=== PATIENT | male | born 1950 | race Caucasian/White ===

== ENCOUNTER 2016-07-01 13:15 | Inpatient (IN) | payer BC, OTHER ==
[~2016-07-01] VITALS: Ht 167.6 cm; Wt 96.6 kg
[2016-07-01] MEDS ORDERED: NAPR500T3 PO (14:54)
[2016-07-01 15:00] VITALS: BP 171/93
[2016-07-01] MEDS ORDERED: BISACODYL 10 MG SUPP.RECT. PR PRN (15:15)
[2016-07-01] MEDS ORDERED: ZOLPIDEM 5 MG TABLET. PO PRN (15:15)
[2016-07-01] MEDS ORDERED: MAGNESIUM HYDROXIDE 2,400 MG/30 ML ORAL.SUSP. PO PRN (15:15)
[2016-07-01] MEDS ORDERED: OXYCODONE IR 5 MG TABLET. PO PRN (15:15)
[2016-07-01] MEDS ORDERED: CALCIUM CARBONATE 500 MG TAB.CHEW PO PRN (15:15)
[2016-07-01] MEDS ORDERED: MORPHINE SULFATE 2 MG/ML DISP.SYRIN. IV PRN (15:15)
[2016-07-01] MEDS ORDERED: KETOROLAC 15 MG/ML VIAL. IV PRN (15:15)
[2016-07-01] MEDS ORDERED: MAG HYDROX/ALUMINUM HYD/SIMETH 30 ML ORAL.SUSP PO PRN (15:15)
[2016-07-01] MEDS ORDERED: ACETAMINOPHEN 325 MG TABLET. PO PRN (15:15)
[2016-07-01] MEDS ORDERED: PROCHLORPERAZINE 10 MG/2 ML VIAL. IV PRN (15:15)
[2016-07-01] MEDS ORDERED: ONDANSETRON PF 4 MG/2 ML VIAL. IV PRN (15:15)
[2016-07-01] MEDS ORDERED: PROCHLORPERAZINE 25 MG SUPP.RECT. PR PRN (15:15)
[2016-07-01] MEDS ORDERED: IBUPROFEN 400 MG TABLET. PO PRN (15:15)
[2016-07-01] MEDS ORDERED: CHLORDIAZEPOXIDE HCL 25 MG PO PRN (16:30)
--- NOTE | 2016-07-01 16:33 | PDOC1 ---
History and Physical Date of Admission Date of Admission DATE: 07/01/16 TIME: 16:26 Identification/Chief Complaint Chief Complaint transferred from [facility] for [facility] Problems: Source Source: Chart review, Patient History of Present Illness History of Present Illness Very pleasant 65 y.o male, premature CAD runs in family,heavy etoh consumption but non smoker, was admitted at [facility] last fri for CP, 7., no identifiable precipitating or alleviating factors. EKg ok, but trops trending up peaking at 3. Hence transferred here to get [facility] - Dr. Jeronimo aware, VS ok, only takes naproxen at home for OA, Chart from [facility] reviewed LIpids taken at [facility] TG 300s, TC 206, LDL 108 HDL 26 Other tests done at [facility], CTA chest shows plaques and fatty liver, Dopplers LE, neg for DVT CXR neg at bedside, they have been x 30 yrs\ \ Strong fam hx premature CAD in one side, father dying at age 60s, sister staretd to have heart issues at age < 55 On the other side, longevity Currently comfortable and CP free Past Medical History Cardiovascular: No pertinent hx Pulmonary: No pertinent hx GI: No pertinent hx Heme/Onc: No pertinent hx Hepatobiliary: No pertinent hx Psych: No pertinent hx Musculoskeletal: Osteoarthritis Rheumatologic: No pertinent hx Infectious disease: No pertinent hx ENT: No pertinent hx Renal/: No pertinent hx Endocrine: No pertinent hx Dermatology: No pertinent hx Past Surgical History Past Surgical History: No pertinent history Family History Family History: Coronary Artery Disease, High Cholestrol, Hypertension Social History ALCOHOL: heavy Drugs: None Current Problem List Problem List Problems Medical Problems: (1) NSTEMI (non-ST elevated myocardial infarction) Status: Acute Problems: Current Medications Current Medications Current Medications Ondansetron HCl (Zofran) 4 mg PRN Q6HRS PRN IV NAUSEA/VOMITING; Start 07/01/16 at 15:15 Prochlorperazine Edisylate (Compazine) 10 mg PRN Q6HRS PRN IV NAUSEA/VOMITING; Start 07/01/16 at 15:15 Prochlorperazine (Compazine) 25 mg PRN Q12HR PRN [place] NAUSEA/VOMITING; Start at 15:15 Al Hydroxide/Mg Hydroxide (Mylanta Plus Xs) 30 ml PRN Q3HRS PRN PO HEARTBURN / GAS; Start 07/01/16 at 15:15 Calcium Carbonate/ Glycine (Tums) 500 mg PRN Q3HRS PRN PO UPSET STOMACH; Start 07/01/16 at 15:15 Zolpidem Tartrate (Ambien) 5 mg PRN QHS PRN PO INSOMNIA, MAY REPEAT IN 1HR; Start 07/01/16 at 15:15 Oxycodone HCl (Roxicodone) 5 mg PRN Q3HRS PRN PO BREAKTHROUGH PAIN; Start 07/01 at 15:15 Morphine Sulfate 2 mg PRN Q2HR PRN IV PAIN; Start 07/01/16 at 15:15 Ketorolac Tromethamine (Toradol) 15 mg PRN Q6HRS PRN IV PAIN; Start 07/01/16 at 15:15; Stop 07/06/16 at 15:14 Acetaminophen (Tylenol) 650 mg PRN Q6HRS PRN PO MILD PAIN / TEMP; Start at 15:15 Ibuprofen (Motrin) 400 mg PRN Q6HRS PRN PO MILD PAIN; Start 07/01/16 at 15:15 Docusate Sodium (Colace) 100 mg BID PO ; Start 07/01/16 at 21:00 Magnesium Hydroxide (Milk Of Magnesia) 2,400 mg PRN Q12HR PRN PO CONSTIPATION; Start 07/01/16 at 15:15 Bisacodyl (Dulcolax Supp) 10 mg PRN DAILY PRN [place] CONSTIPATION; Start 07/01/16 at 15:15 Enoxaparin Sodium (Lovenox 40mg Syringe) 40 mg QHS SQ ; Start 07/01/16 at 21:00 Enoxaparin Sodium 100 mg 100 mg 1X ONCE SQ ; Start 07/01/16 at 16:00; Stop at 16:01; Status DC Sodium Chloride (Iv Sodium Chloride 0.9% 1000ml Bag) 1,000 ml @ 75 mls/hr [id number] IV ; Start 07/02/16 at 08:00 Active Scripts Active Reported Naproxen 500 Mg Tablet 500 Mg PO Allergies Allergies: Coded Allergies: No Known Drug Allergies (Unverified , 07/01/16) ROS General: No: Appetite, Chills, Fatigue, Malaise, Night Sweats, Other PSYCHOLOGICAL ROS: No: Anxiety, Behavioral Disorder, Concentration difficultie , Decreased libido, Depression, Disorientation, Hallucinations, Hostility, Irritablity, Memory difficulties, Mood Swings, Obsessive thoughts, Other, Physical abuse, Sexual abuse, Sleep disturbances, Suicidal ideation Eyes: No Blurry vision, No Decreased vision, No Double vision, No Dry eyes, No Excessive tearing, No Eye Pain, No Itchy Eyes, No Loss of vision, No Other, No Photophobia, No Scotomata, No Uses contacts, No Uses glasses HEENT: No: Epistaxis, Heacaches, Hearing change, Nasal congestion, Nasal discharge, Oral lesions, Other, Sinus pain, Sneezing, Snoring, Sore Throat, Tinnitus, Vertigo, Visual Changes, Vocal changes ALLERGY AND IMMUNOLOGY: No: Hives, Insect Bite Sensitivity, Itchy/Watery Eyes, Nasal Congestion, Other, Post Nasal Drip, Seasonal Allergies Hematological and Lymphatic: No: Bleeding Problems, Blood Clots, Blood Transfusions, Brusing, Night Sweats, Other, Pallor, Swollen Lymph Nodes ENDOCRINE: No: Breast Changes, Galactorrhea, Hair Pattern Changes, Hot Flashes , Malaise/lethargy, Mood Swings, Other, Palpitations, Polydipsia/polyuria, Skin Changes, Temperature Intolerance, Unexpected Weight Changes Breast: No New/Changing Breast Lumps, No Nipple changes, No Nipple discharge, No Other Respiratory: No: Cough, Hemoptysis, Orthopnea, Other, Pleuritic Pain, SOB with excertion, Shortness of breath, Sputum Changes, Stridor, Tachypnea, Wheezing Cardiovascular: No Chest Pain, No Edema, No Lt Headedness, No Orthopnea, No Other, No Palpitations, No Paroxysmal Noc. Dyspnea Gastrointestinal: No Abdominal Pain, No Constipation, No Diarrhea, No Hematochezia, No Melena, No Nausea, No Other, No Vomiting Genitourinary: No , No , No , No , No , No , No , No Discharge, No Dysuria, No Flank Pain, No Frequency, No Hematuria, No Incontinence, No Other, No Pain, No Retention, No Urgency Musculoskeletal: No Gait Disturbance, No Joint Pain, No Joint Stiffness, No Joint Swelling, No Muscle Pain, No Muscular Weakness, No Other, No Pain In:, No Swelling In: Neurological: No Behavorial Changes, No Bowel/Bladder ControlChng, No Confusion , No Dizziness, No Gait Disturbance, No Headaches, No Impaired Coord/balance, No Memory Loss, No Numbness/Tingling, No Other, No Seizures, No Speech Problems , No Tremors, No Visual Changes, No Weakness Skin: No Acne, No Dry Skin, No Eczema, No Hair Changes, No Lumps, No Mole Changes, No Mottling, No Nail Changes, No Other, No Pruritus, No Rash, No Skin Lesion Changes Physical Exam General: Alert, Cooperative, No acute distress HEENT: PERRLA, EOMI Lungs: Clear to auscultation, Normal air movement Heart: S1S2, RRR, no thrills, no rubs, no gallops, no murmurs Cardiovascular: S1, S2 Breasts: Normal Abdomen: Normal bowel sounds, Soft, No tenderness Male Genitals Exam: normal genitalia, normal prostate PELVIC: Nml ext genitalia Extremities: No clubbing, No cyanosis, No edema, Normal pulses, No tenderness/ swelling Skin: No rashes, No breakdown, No significant lesion Neuro: Normal gait, Normal speech, Strength at 5/5 X4 ext, Normal tone, Sensation intact, Cranial nerves 3-12 NL, Reflexes 2+ Psych/Mental Status: Mental status NL, Mood NL Vitals Vitals Vital Signs Date Time Temp Pulse Resp B/P Pulse Ox O2 Delivery O2 Flow Rate FiO2 07/01/16 15:00 98.2 65 18 171/93 99 Room Air 98.2 VTE Prophylaxis Ordered VTE Prophylaxis Devices: Yes VTE Pharmacological Prophylaxi: Yes Assessment/Plan Assessment/Plan 1. NSTEMI 2. CP with trops peaking at 3 3. Mixed dyslipidemia 4. Heavy etoh consumption with fatty liver on CTA 5.Coronary Plaques/atherosclerosis on CTA 6. Strong fam hx premature CAD in family PLAn: Lovenox 100 SQ tonight as dw cards Hook tele NPO ost MN for LHC adrien Statin - will defer to cards dose and choice of agent Benzos prn - WOF etoh withdrawal Dw RN and and pt MAXIMILIAN CVC admit STEPHANIE SLADE MD Jul 01, 2016 16:33
[2016-07-01] MEDS: MULTIVITAMIN with MINERAL TABLET. PO SCH (17:59)
[2016-07-01] MEDS: THIAMINE 100 MG TABLET. PO SCH (17:59)
[2016-07-01] MEDS: FOLIC ACID 1 MG TABLET. PO SCH (17:59)
[2016-07-01 19:10] VITALS: BP 173/92
[2016-07-01] MEDS: ASPIRIN 325 MG TABLET PO SCH (20:30)
[2016-07-01] MEDS: DOCUSATE SODIUM 100 MG CAPSULE. PO SCH (20:57)
[2016-07-01] MEDS: LISINOPRIL 5 MG TABLET. PO SCH (20:57)
[2016-07-01] MEDS: NITROGLYCERIN OINT 1 GM PACKET. TP SCH ×2 (20:58→23:48)
[2016-07-01] MEDS ORDERED: ENOXAPARIN 40 MG/0.4 ML SYRINGE. SQ SCH (21:00)
[2016-07-01 23:20] VITALS: BP 131/66
[2016-07-02] VITALS (14 sets, daily range): BP systolic 104–174; BP diastolic 55–94
[2016-07-02 04:50] LABS: BASO # 0.1 x10^3/uL (0.0-0.2); BASO % 1 % (0-3); EOS % 3 % (0-3); HEMATOCRIT 39.4 % (39.0-53.0); HEMOGLOBIN 13.7 g/dL (13.0-17.5); LYMPH # 2.5 x10^3/uL (1.0-4.8); LYMPH % 36 % (24-48); MEAN CORPUSCULAR HEMOGLOBIN 30 pg (25-35); MEAN CORPUSCULAR HGB CONC 35 g/dL (31-37); MEAN CORPUSCULAR VOLUME 86 fL (79-100); MONO % 9 % (0-9); NEUT % 52 % (31-73); PLATELET COUNT 166 x10^3/uL (140-400); RED BLOOD COUNT 4.56 x10^6/uL (4.30-5.70); RED CELL DISTRIBUTION WIDTH 13.7 % (11.5-14.5); WHITE BLOOD COUNT 7.1 x10^3/uL (4.0-11.0)
[2016-07-02 04:57] LABS: PROTHROMBIN TIME PATIENT 12.4 SEC (11.7-14.0)
[2016-07-02] MEDS: NITROGLYCERIN OINT 1 GM PACKET. TP SCH ×4 (06:35→23:27)
--- NOTE | 2016-07-02 08:15 | PDOC ---
PROGRESS NOTES Chief Complaint Chief Complaint Chest pain ASSESSMENT AND PLAN: 1. NSTEMI: mild troponin leak and coronary atherosclerosis on CTA and strong FHx premature CAD in family. cath planned for today 2. Dyslipidemia: mixed 3. Fatty liver on CT 4. EtOH abuse: CIWA protocol History of Present Illness History of Present Illness no ongoing CP, feels ok. Vitals Vitals Vital Signs Date Time Temp Pulse Resp B/P Pulse Ox O2 Delivery O2 Flow Rate FiO2 07/02/16 07:55 Room Air 07/02/16 07:00 97.7 68 16 104/55 97 97.7 Physical Exam General: Alert, Oriented X3, Cooperative, No acute distress Heart: Regular rate Lungs: Clear Abdomen: Normal bowel sounds, Soft, No tenderness Extremities: No clubbing, No edema Skin: No rashes Labs LABS Laboratory Tests Test 07/01/16 17:57 07/01/16 20:51 07/02/16 03:00 Glucose (Fingerstick) 118mg/dL (70-99) 162mg/dL (70-99) White Blood Count 7.1x10^3/uL (4.0-11.0) Red Blood Count 4.56x10^6/uL (4.30-5.70) Hemoglobin 13.7g/dL (13.0-17.5) Hematocrit 39.4% (39.0-53.0) Mean Corpuscular Volume 86fL (79-100) Mean Corpuscular Hemoglobin 30pg (25-35) Mean Corpuscular Hemoglobin Concent 35g/dL (31-37) Red Cell Distribution Width 13.7% (11.5-14.5) Platelet Count 166x10^3/uL (140-400) Neutrophils (%) (Auto) 52% (31-73) Lymphocytes (%) (Auto) 36% (24-48) Monocytes (%) (Auto) 9% (0-9) Eosinophils (%) (Auto) 3% (0-3) Basophils (%) (Auto) 1% (0-3) Neutrophils # (Auto) 3.7x10^3uL (1.8-7.7) Lymphocytes # (Auto) 2.5x10^3/uL (1.0-4.8) Monocytes # (Auto) 0.6x10^3/uL (0.0-1.1) Eosinophils # (Auto) 0.2x10^3/uL (0.0-0.7) Basophils # (Auto) 0.1x10^3/uL (0.0-0.2) Prothrombin Time 12.4SEC (11.7-14.0) Prothromb Time International Ratio 1.0 (0.8-1.1) Comment Review of Relevant I have reviewed the following items yareli (where applicable) has been applied. Labs Laboratory Tests Test 07/01/16 17:57 07/01/16 20:51 07/02/16 03:00 Glucose (Fingerstick) 118mg/dL (70-99) 162mg/dL (70-99) White Blood Count 7.1x10^3/uL (4.0-11.0) Red Blood Count 4.56x10^6/uL (4.30-5.70) Hemoglobin 13.7g/dL (13.0-17.5) Hematocrit 39.4% (39.0-53.0) Mean Corpuscular Volume 86fL (79-100) Mean Corpuscular Hemoglobin 30pg (25-35) Mean Corpuscular Hemoglobin Concent 35g/dL (31-37) Red Cell Distribution Width 13.7% (11.5-14.5) Platelet Count 166x10^3/uL (140-400) Neutrophils (%) (Auto) 52% (31-73) Lymphocytes (%) (Auto) 36% (24-48) Monocytes (%) (Auto) 9% (0-9) Eosinophils (%) (Auto) 3% (0-3) Basophils (%) (Auto) 1% (0-3) Neutrophils # (Auto) 3.7x10^3uL (1.8-7.7) Lymphocytes # (Auto) 2.5x10^3/uL (1.0-4.8) Monocytes # (Auto) 0.6x10^3/uL (0.0-1.1) Eosinophils # (Auto) 0.2x10^3/uL (0.0-0.7) Basophils # (Auto) 0.1x10^3/uL (0.0-0.2) Prothrombin Time 12.4SEC (11.7-14.0) Prothromb Time International Ratio 1.0 (0.8-1.1) Laboratory Tests Test 07/01/16 17:57 07/01/16 20:51 07/02/16 03:00 Glucose (Fingerstick) 118mg/dL (70-99) 162mg/dL (70-99) White Blood Count 7.1x10^3/uL (4.0-11.0) Red Blood Count 4.56x10^6/uL (4.30-5.70) Hemoglobin 13.7g/dL (13.0-17.5) Hematocrit 39.4% (39.0-53.0) Mean Corpuscular Volume 86fL (79-100) Mean Corpuscular Hemoglobin 30pg (25-35) Mean Corpuscular Hemoglobin Concent 35g/dL (31-37) Red Cell Distribution Width 13.7% (11.5-14.5) Platelet Count 166x10^3/uL (140-400) Neutrophils (%) (Auto) 52% (31-73) Lymphocytes (%) (Auto) 36% (24-48) Monocytes (%) (Auto) 9% (0-9) Eosinophils (%) (Auto) 3% (0-3) Basophils (%) (Auto) 1% (0-3) Neutrophils # (Auto) 3.7x10^3uL (1.8-7.7) Lymphocytes # (Auto) 2.5x10^3/uL (1.0-4.8) Monocytes # (Auto) 0.6x10^3/uL (0.0-1.1) Eosinophils # (Auto) 0.2x10^3/uL (0.0-0.7) Basophils # (Auto) 0.1x10^3/uL (0.0-0.2) Prothrombin Time 12.4SEC (11.7-14.0) Prothromb Time International Ratio 1.0 (0.8-1.1) Medications Current Medications Ondansetron HCl (Zofran) 4 mg PRN Q6HRS PRN IV NAUSEA/VOMITING; Start 07/01/16 at 15:15 Prochlorperazine Edisylate (Compazine) 10 mg PRN Q6HRS PRN IV NAUSEA/VOMITING; Start 07/01/16 at 15:15 Prochlorperazine (Compazine) 25 mg PRN Q12HR PRN [place] NAUSEA/VOMITING; Start at 15:15 Al Hydroxide/Mg Hydroxide (Mylanta Plus Xs) 30 ml PRN Q3HRS PRN PO HEARTBURN / GAS; Start 07/01/16 at 15:15 Calcium Carbonate/ Glycine (Tums) 500 mg PRN Q3HRS PRN PO UPSET STOMACH; Start 07/01/16 at 15:15 Zolpidem Tartrate (Ambien) 5 mg PRN QHS PRN PO INSOMNIA, MAY REPEAT IN 1HR; Start 07/01/16 at 15:15 Oxycodone HCl (Roxicodone) 5 mg PRN Q3HRS PRN PO BREAKTHROUGH PAIN; Start 07/01 at 15:15 Morphine Sulfate 2 mg PRN Q2HR PRN IV PAIN; Start 07/01/16 at 15:15 Ketorolac Tromethamine (Toradol) 15 mg PRN Q6HRS PRN IV PAIN; Start 07/01/16 at 15:15; Stop 07/06/16 at 15:14 Acetaminophen (Tylenol) 650 mg PRN Q6HRS PRN PO MILD PAIN / TEMP; Start at 15:15 Ibuprofen (Motrin) 400 mg PRN Q6HRS PRN PO MILD PAIN; Start 07/01/16 at 15:15 Docusate Sodium (Colace) 100 mg BID PO Last administered on 07/01/16 20:57; Start 07/01/16 at 21:00 Magnesium Hydroxide (Milk Of Magnesia) 2,400 mg PRN Q12HR PRN PO CONSTIPATION; Start 07/01/16 at 15:15 Bisacodyl (Dulcolax Supp) 10 mg PRN DAILY PRN [place] CONSTIPATION; Start 07/01/16 at 15:15 Enoxaparin Sodium (Lovenox 40mg Syringe) 40 mg QHS SQ ; Start 07/01/16 at 21:00 ; Stop 07/01/16 at 21:00; Status DC Enoxaparin Sodium 100 mg 100 mg 1X ONCE SQ Last administered on 07/01/16 18: 00; Start 07/01/16 at 16:00; Stop 07/01/16 at 16:01; Status DC Sodium Chloride (Iv Sodium Chloride 0.9% 1000ml Bag) 1,000 ml @ 75 mls/hr [id number] IV ; Start 07/02/16 at 08:00 Thiamine HCl (Vitamin B-1) 100 mg DAILY PO Last administered on 07/01/16 17:59 ; Start 07/01/16 at 18:00 Folic Acid (Folic Acid) 1 mg DAILY PO Last administered on 07/01/16 17:59; Start 07/01/16 at 18:00 Multivitamins (Thera M Plus) 1 tab DAILY PO Last administered on 07/01/16 17: 59; Start 07/01/16 at 18:00 Chlordiazepoxide (Librium) 25 mg PRN Q6HRS PRN PO ANXIETY / AGITATION; Start at 16:30 Nitroglycerin (Nitro-Bid Oint) 1 inch Q6HRS TP Last administered on 07/02/16 06:35; Start 07/01/16 at 21:00 Aspirin (Jonathan Aspirin) 325 mg DAILYWBKFT PO ; Start 07/01/16 at 20:30 Lisinopril (Prinivil) 5 mg DAILY PO Last administered on 07/01/16 20:57; Start 07/01/16 at 20:30 Active Scripts Active Reported Naproxen 500 Mg Tablet 500 Mg PO Vitals/I & O Vital Sign - Last 24 Hours 07/01/16 07/01/16 07/01/16 07/01/16 15:00 15:00 15:00 19:10 Temp 98.2 98.2 98.0 98.2 98.2 98.0 Pulse 65 65 57 Resp 18 18 14 B/P 171/93 171/93 173/92 Pulse Ox 99 98 98 O2 Delivery Room Air Room Air Room Air Room Air 07/01/16 07/01/16 07/01/16 07/01/16 19:40 20:57 20:58 23:20 Temp 98.3 98.3 Pulse 60 60 62 Resp 12 B/P 173/92 173/92 131/66 Pulse Ox 98 O2 Delivery Room Air Room Air 07/01/16 07/02/16 07/02/16 07/02/16 23:48 03:55 06:35 07:00 Temp 98.0 97.7 98.0 97.7 Pulse 62 70 60 68 Resp 16 16 B/P 131/66 105/57 105/57 104/55 Pulse Ox 98 97 O2 Delivery Room Air Room Air 07/02/16 07:55 O2 Delivery Room Air Intake and Output 07/01/16 07/01/16 07/02/16 15:00 23:00 07:00 Intake Total 1000 ml 550 ml Output Total 1050 ml 475 ml Balance -50 ml 75 ml LAUREN SILVERIO MD Jul 02, 2016 08:15
[2016-07-02 08:37] LABS: ALBUMIN 3.3 g/dL (3.4-5.0); CALCIUM 8.4 mg/dL (8.5-10.1); GFR 75.5; POTASSIUM 3.9 mmol/L (3.5-5.1); TOTAL BILIRUBIN 0.3 mg/dL (0.2-1.0); TOTAL PROTEIN 6.5 g/dL (6.4-8.2)
[2016-07-02] MEDS: DOCUSATE SODIUM 100 MG CAPSULE. PO SCH ×2 (09:00→22:07)
[2016-07-02] MEDS: FOLIC ACID 1 MG TABLET. PO SCH (09:00)
[2016-07-02] MEDS: THIAMINE 100 MG TABLET. PO SCH (09:00)
[2016-07-02] MEDS: MULTIVITAMIN with MINERAL TABLET. PO SCH (09:00)
[2016-07-02] MEDS: ASPIRIN 325 MG TABLET PO SCH (09:01)
[2016-07-02] MEDS: LISINOPRIL 5 MG TABLET. PO SCH ×2 (09:02→11:34)
[2016-07-02] MEDS: IV NORMAL SALINE 1000ML BAG 1,000 ML IV SCH ×2 (09:02→21:20)
[2016-07-02] MEDS ORDERED: LIDOCAINE 2% 20 ML VIAL. ONE (09:12)
[2016-07-02] MEDS ORDERED: IOHEXOL 300 MG/ML 100ML VIAL. ONE (09:12)
--- NOTE | 2016-07-02 09:13 | PDOC ---
MODERATE SEDATION ASSESSMENT RISKS/ALTERNATIVES Risks/Alternatives Risks and alternatives of this type of sedation and procedure discussed with: RISK/ALTERNATIVES: Patient H & P ON CHART H & P H & P on chart and reviewed for co-morbid conditions and appropriate labs. H&P ON CHART: Yes STATUS PREG STATUS ASSESSED: N/A MEDS/ALLERGIES REVIEWED Meds/Allergies Reviewed Medications and Allergies including time and route of recently administered narcotics and sedatives. MEDS/ALLERGIES REVIEWED: Yes ASA RATING ASA RATING: II AIRWAY ASSESSMENT Airway Assessment Airway patency, oral function limitations, presence of caps, crowns, dentures, partials, and ability to extend neck assessed. AIRWAY ASSESSMENT: Yes MALLAMPATI SCORE MALLAMPATI SCORE: II PRE-SEDATION ASSESSMENT PRE-SEDATION ASSESSMENT: Yes BOBBY PIMENTEL MD Jul 02, 2016 09:13
[2016-07-02] MEDS ORDERED: FENTANYL PF 100 MCG/2 ML VIAL. ONE (09:31)
[2016-07-02] MEDS ORDERED: MIDAZOLAM HCL/PF 2 MG/2 ML VIAL. ONE (09:31)
[2016-07-02] MEDS ORDERED: NITROGLYCERIN OINT 1 GM PACKET. ONE (09:45)
[2016-07-02] MEDS ORDERED: MIDAZOLAM HCL/PF 2 MG/2 ML VIAL. IV ONE (10:00)
[2016-07-02] MEDS ORDERED: FENTANYL PF 100 MCG/2 ML VIAL. IV ONE (10:00)
[2016-07-02] MEDS ORDERED: NITROGLYCERIN OINT 1 GM PACKET. TP ONE (10:00)
[2016-07-02] MEDS ORDERED: LIDOCAINE 2% 20 ML VIAL. IJ ONE (10:00)
[2016-07-02] MEDS ORDERED: IOHEXOL 300 MG/ML 100ML VIAL. IART ONE (10:00)
[2016-07-02] MEDS ORDERED: BIVALIRUDIN 250 MG VIAL. IV ONE ×2 (10:06→10:15)
[2016-07-02] MEDS ORDERED: ATROPINE 0.5 MG/5 ML DISP.SYRIN. ONE (10:11)
[2016-07-02] MEDS ORDERED: TICAGRELOR 90 MG TABLET. ONE (10:31)
[2016-07-02] MEDS ORDERED: ASPIRIN CHEWABLE 81 MG TABLET. PO ONE (10:45)
[2016-07-02] MEDS ORDERED: TICAGRELOR 90 MG TABLET. PO ONE (10:45)
[2016-07-02] MEDS ORDERED: IV NORMAL SALINE 1000ML BAG 1,000 ML IV SCH (10:55)
--- NOTE | 2016-07-02 10:55 | PDOC4 ---
Operative Note Operative Note Brief cath note. LV 160/18, AO 156/84 Left main. 25% distal lesion. LAD. No lesions >20% LCX. No lesions > 20%. RCA. Mid 95% lesion. 3.0 x 18 Drug coated stent to RCA, 0% residual lesion. LV 55% ejection fraction. Post PCI protocol. Discussed with the patient and his family. Home tomorrow. Full report to follow. BOBBY PIMENTEL MD Jul 02, 2016 10:55
[2016-07-02] MEDS ORDERED: LIDOCAINE 2% 100 MG/5 ML SYRINGE. IV PRN (11:00)
[2016-07-02] MEDS ORDERED: FENTANYL PF 100 MCG/2 ML VIAL. IV PRN (11:00)
[2016-07-02] MEDS: ASPIRIN ENTERIC COATED 81 MG TABLET.DR. PO SCH (11:00)
[2016-07-02] MEDS ORDERED: AMIODARONE 150 MG in IV DEXTROSE 5% 100 ML IV PRN (11:00)
[2016-07-02] MEDS ORDERED: OXYCODONE/APAP 5/325 TABLET. PO PRN (11:00)
[2016-07-02] MEDS ORDERED: 0.9 % SODIUM CHLORIDE 10 ML DISP.SYRIN. IV PRN (11:00)
[2016-07-02] MEDS ORDERED: NITROGLYCERIN SUBLINGUAL 0.4 MG BOTTLE OF 25. SL PRN (11:00)
[2016-07-02] MEDS ORDERED: ATROPINE 0.5 MG/5 ML DISP.SYRIN. IV PRN (11:00)
[2016-07-02] MEDS ORDERED: ACETAMINOPHEN 325 MG TABLET. PO PRN (11:00)
--- NOTE | 2016-07-02 12:00 | EKG ---
[facility] [address] [place] [address] Test Date: 2016-07-02 Test Time: 11:52:16 Pat Name: TAAT ORLANDO Department: Room: 250 1 Gender: M Rfid Technician: ANTONIO : 1950 Requested By: BOBBY PIMENTEL Order Number: [id number] Reading MD: Bhavin Morales Measurements Intervals [place] Rate: 58 P: 30 [place]: 138 QRS: -9 QRSD: 102 T: -15 QT: 414 QTc: 406 Interpretive Statements SINUS RHYTHM Electronically Signed On 07-03-2016 15:52:33 CDT by Bhavin Morales
--- NOTE | 2016-07-02 16:09 | CARD ---
APPROVED REPORT Procedures Left heart catheterization. Left ventriculogram. Selective coronary angiogram. Drug coated stent placement to the right coronary artery. The patient is a 65-year-old male who was admitted to the hospital with chest pain. The patient had n o acute EKG changes. Troponin mildly increased to 2.0. Heart catheterization has been recommended. Ri sks and benefits were discussed with the patient. He has agreed to proceed. After informed consent was obtained the patient was brought to the heart catheterization lab. The are a of the right femoral artery was prepared in the usual manner with Betadine, sterile draping and loc al anesthetic. An 18-gauge needle was used to enter the right femoral artery, a wire placed and a 6 F rench sheath placed over the wire. With the assistance the J-wire, a 6 Zambian JL4 diagnostic catheter was advanced the ascending aorta. It was then used to engage the left system and sequential injectio ns in various views were obtained. A 6 [place]ambian Fran right diagnostic catheter was advanced in a si milar manner. It was used for selective injection of the right coronary artery. At this time a 95% mi d right coronary lesion was identified. We proceeded to revascularize the vessel. A 6 [place]ambian JR4 guide was advanced the ascending aorta. It was used to engage the right coronary arter y after Angiomax was administered. A PT choice wire was used to cross the lesion. Initial dilatation with a 2.5 x 15 trek balloon with one inflation at 8 bonita for 20 seconds. A 3.0 x 18 Xience Alpine yohannes g-eluting stent was then deployed with one inflation at 16 bonita for 16 seconds. Residual lesion was 0% . The wire and the guide were then removed from the patient. A pigtail catheter was advanced the asce nding aorta and then the left ventricle. A 30 SOUZA left ventricular exam was performed. Pullback dalia urements were measured. The catheter was removed from the patient. Injection that sheath showed clint l placement. The sheath was removed and sealed with an Angio-Seal product. The patient was moved to [facility] in stable condition. Findings. Hemodynamics. LV pressure of 160/18, aortic root pressure 158/84. Coronaries. Left main. The left main had a distal 25% lesion. Left anterior descending vessel. The LAD had normal distribution. It had mild mid irregularities but no angiographic lesions. Left circumflex. The left circumflex had normal distribution of a nondominant vessel. It had a proxim al 10% lesion. Right coronary artery. The right coronary was a large dominant vessel. It had a mid 95% lesion. Left ventriculogram. The left ventricle showed very slight inferior hypokinesis. Ejection fraction was greater than 55%. T here was no mitral regurgitation. <Conclusion> Severe single-vessel coronary artery disease with a 95% mid right coronary artery lesion. 25% lesion in the left main vessel. Ejection fraction of 55% or greater with slight inferior hypokinesis. Successful drug-eluting stent to the right coronary artery decreasing a 95% lesion to 0%.
[2016-07-02] MEDS ORDERED: ATORVASTATIN CALCIUM 20 MG TABLET PO SCH (21:00)
[2016-07-02] MEDS: METOPROLOL TART IMMED RELEASE 25 MG TABLET. PO SCH (21:00)
[2016-07-03 03:51] VITALS: BP 156/74
[2016-07-03] MEDS: NITROGLYCERIN OINT 1 GM PACKET. TP SCH ×2 (06:00→12:00)
[2016-07-03 06:47] LABS: BASO # 0.1 x10^3/uL (0.0-0.2); BASO % 1 % (0-3); EOS % 1 % (0-3); HEMATOCRIT 42.8 % (39.0-53.0); HEMOGLOBIN 14.4 g/dL (13.0-17.5); LYMPH # 1.5 x10^3/uL (1.0-4.8); LYMPH % 17 % (24-48); MEAN CORPUSCULAR HEMOGLOBIN 29 pg (25-35); MEAN CORPUSCULAR HGB CONC 34 g/dL (31-37); MEAN CORPUSCULAR VOLUME 87 fL (79-100); MONO % 8 % (0-9); NEUT % 74 % (31-73); PLATELET COUNT 171 x10^3/uL (140-400); RED BLOOD COUNT 4.91 x10^6/uL (4.30-5.70); RED CELL DISTRIBUTION WIDTH 14.1 % (11.5-14.5); WHITE BLOOD COUNT 8.8 x10^3/uL (4.0-11.0)
[2016-07-03 06:59] LABS: CALCIUM 8.9 mg/dL (8.5-10.1); GFR 75.5; POTASSIUM 4.2 mmol/L (3.5-5.1)
[2016-07-03 07:22] LABS: CHOLESTEROL/HDL RATIO 6.7
[2016-07-03 07:55] VITALS: BP 173/92
[2016-07-03] MEDS ORDERED: TICAGRELOR 90 MG TABLET. PO SCH (09:00)
[2016-07-03] MEDS: LISINOPRIL 5 MG TABLET. PO SCH ×2 (09:00→09:32)
[2016-07-03] MEDS: DOCUSATE SODIUM 100 MG CAPSULE. PO SCH (09:00)
[2016-07-03] MEDS: ASPIRIN ENTERIC COATED 81 MG TABLET.DR. PO SCH (09:31)
[2016-07-03] MEDS: THIAMINE 100 MG TABLET. PO SCH (09:31)
[2016-07-03] MEDS: MULTIVITAMIN with MINERAL TABLET. PO SCH (09:31)
[2016-07-03] MEDS: METOPROLOL TART IMMED RELEASE 25 MG TABLET. PO SCH (09:32)
[2016-07-03] MEDS: FOLIC ACID 1 MG TABLET. PO SCH (09:32)
--- NOTE | 2016-07-03 09:48 | EKG ---
[facility] [address] [place] [address] Test Date: 2016-07-03 Test Time: 09:46:04 Pat Name: TATA ORLANDO Department: Room: 250 1 Gender: M Step Down Specialist: AMOS : 1950 Requested By: BOBBY PIMENTEL Order Number: [id number] Reading MD: Bhavin Morales Measurements Intervals [place] Rate: 73 P: 24 [place]: 134 QRS: -2 QRSD: 106 T: -4 QT: 388 QTc: 431 Interpretive Statements SINUS RHYTHM Electronically Signed On 07-03-2016 16:04:01 CDT by Bhavin Morales
[2016-07-03] MEDS: IV NORMAL SALINE 1000ML BAG 1,000 ML IV SCH (10:40)
[2016-07-03 11:18] VITALS: BP 156/79
--- NOTE | 2016-07-03 12:57 | PDOC ---
CARDIO Progress Notes Date and Time Date of Service 07/03/2016 Time of Evaluation 1140 Subjective Subjective: No Chest Pain, No shortness of breath, No Palpitations, No Dizziness Vitals Vitals Vital Signs Date Time Temp Pulse Resp B/P Pulse Ox O2 Delivery O2 Flow Rate FiO2 07/03/16 11:18 98.3 56 18 156/79 98 Room Air 98.3 Weight Weight [ ] Input and Output Intake and Output Intake and Output 07/03/16 07:00 Intake Total 1870 ml Output Total 2850 ml Balance -980 ml Intake Oral 1270 ml IV Total 600 ml Output Urine Total 2850 ml # Voids 1 Laboratory Labs Laboratory Tests Test 07/02/16 20:44 07/03/16 06:10 07/03/16 07:52 Glucose (Fingerstick) 165mg/dL (70-99) 148mg/dL (70-99) White Blood Count 8.8x10^3/uL (4.0-11.0) Red Blood Count 4.91x10^6/uL (4.30-5.70) Hemoglobin 14.4g/dL (13.0-17.5) Hematocrit 42.8% (39.0-53.0) Mean Corpuscular Volume 87fL (79-100) Mean Corpuscular Hemoglobin 29pg (25-35) Mean Corpuscular Hemoglobin Concent 34g/dL (31-37) Red Cell Distribution Width 14.1% (11.5-14.5) Platelet Count 171x10^3/uL (140-400) Neutrophils (%) (Auto) 74% (31-73) Lymphocytes (%) (Auto) 17% (24-48) Monocytes (%) (Auto) 8% (0-9) Eosinophils (%) (Auto) 1% (0-3) Basophils (%) (Auto) 1% (0-3) Neutrophils # (Auto) 6.5x10^3uL (1.8-7.7) Lymphocytes # (Auto) 1.5x10^3/uL (1.0-4.8) Monocytes # (Auto) 0.7x10^3/uL (0.0-1.1) Eosinophils # (Auto) 0.1x10^3/uL (0.0-0.7) Basophils # (Auto) 0.1x10^3/uL (0.0-0.2) Sodium Level 141mmol/L (136-145) Potassium Level 4.2mmol/L (3.5-5.1) Chloride Level 105mmol/L (98-107) Carbon Dioxide Level 29mmol/L (21-32) Anion Gap 7 (6-14) Blood Urea Nitrogen 11mg/dL (8-26) Creatinine 1.0mg/dL (0.7-1.3) Estimated GFR (Cockcroft-Gault) 75.5 Glucose Level 149mg/dL (70-99) Calcium Level 8.9mg/dL (8.5-10.1) Triglycerides Level 237mg/dL (0-150) Cholesterol Level 209mg/dL (0-200) LDL Cholesterol, Calculated 131mg/dL (0-100) VLDL Cholesterol, Calculated 47mg/dL (0-40) Non-HDL Cholesterol Calculated 178mg/dL (0-129) HDL Cholesterol 31mg/dL (40-60) Cholesterol/HDL Ratio 6.7 Thyroid Stimulating Hormone (TSH) 2.100uIU/mL (0.358-3.74) Physical Exam HEENT: Neck Supple W Full Motion Chest: Symmetric LUNGS: Clear to Auscultation Heart: S1S2, RRR (SB) Abdomen: Soft N/T Extremities: No Edema, No Calf Tenderness Neurology: alert, oriented, follow commands Other Exams right groin arteriotomy site intact and dry, no swelling, hematoma, neurovascular status intact Assessment Assessment 1. NSTEMI: S/P diffuse mild disease except for 95% RCA lesion prompting PCI/CAT 2. CAD: New as above 3. Asymptomatic sinus bradycardia: slowest at 40. 4. HLP 5. HTN 6. SOUTH with Likely DM2: multiple fasting BG above normal parameter. Defer to PCP 7. Obesity 8. Alcoholism Recommendations 1. DAPT with ECASA 81 mg po daily and brilinta (discount card and 1 wk sample given) 2. No AV bernard blocking agents at this time. Will reeval BB use as an outpt. 3. Continue with increased lisinopril and will place on low dose hydralazine 4. Lipitor has been increased. 5. Encouraged cardiac rehab and alcohol abstinence and lifestyle modifications 6. Post cath instructions and follow up in office in 1 month. 7. TSH, A1C OMEGA MORIN APRN Jul 03, 2016 12:57
[2016-07-03] MEDS ORDERED: ATOR40TA59 PO (13:48)
[2016-07-03] MEDS ORDERED: HYDR-2868 PO (13:49)
[2016-07-03] MEDS ORDERED: TICA90TA PO (13:50)
[2016-07-03] MEDS ORDERED: LISI-334 PO (13:50)
[2016-07-03] MEDS ORDERED: ASPI81TA2 PO (13:52)
--- NOTE | 2016-07-03 13:55 | PDOC ---
PROGRESS NOTES Chief Complaint Chief Complaint Chest pain 1. NSTEMI: mild troponin leak and coronary atherosclerosis on CTA and strong FHx premature CAD in family. cath planned for today 2. Dyslipidemia: mixed 3. Fatty liver on CT 4. EtOH abuse: [facility] protocol History of Present Illness History of Present Illness Patient seen and evaluated this AM. Patient sitting upright in chair, resting without any apparent signs of distress. Patient notes pain to his groin s/p LHC , but otherwise without complaints. Patient states he is feeling well and eager to be discharged. d/w nurse. Vitals Vitals Vital Signs Date Time Temp Pulse Resp B/P Pulse Ox O2 Delivery O2 Flow Rate FiO2 07/03/16 11:18 98.3 56 18 156/79 98 Room Air 98.3 Physical Exam General: Alert, Oriented X3, Cooperative, No acute distress Heart: Regular rate, Normal S1, Normal S2 Lungs: Clear, Other (negative chest retractions and/or other accessory muscle use. ) Abdomen: Normal bowel sounds, Soft, No tenderness, Other (obese ) Extremities: No clubbing, No edema Skin: No rashes Labs LABS Laboratory Tests Test 07/02/16 20:44 07/03/16 06:10 07/03/16 07:52 Glucose (Fingerstick) 165mg/dL (70-99) 148mg/dL (70-99) White Blood Count 8.8x10^3/uL (4.0-11.0) Red Blood Count 4.91x10^6/uL (4.30-5.70) Hemoglobin 14.4g/dL (13.0-17.5) Hematocrit 42.8% (39.0-53.0) Mean Corpuscular Volume 87fL (79-100) Mean Corpuscular Hemoglobin 29pg (25-35) Mean Corpuscular Hemoglobin Concent 34g/dL (31-37) Red Cell Distribution Width 14.1% (11.5-14.5) Platelet Count 171x10^3/uL (140-400) Neutrophils (%) (Auto) 74% (31-73) Lymphocytes (%) (Auto) 17% (24-48) Monocytes (%) (Auto) 8% (0-9) Eosinophils (%) (Auto) 1% (0-3) Basophils (%) (Auto) 1% (0-3) Neutrophils # (Auto) 6.5x10^3uL (1.8-7.7) Lymphocytes # (Auto) 1.5x10^3/uL (1.0-4.8) Monocytes # (Auto) 0.7x10^3/uL (0.0-1.1) Eosinophils # (Auto) 0.1x10^3/uL (0.0-0.7) Basophils # (Auto) 0.1x10^3/uL (0.0-0.2) Sodium Level 141mmol/L (136-145) Potassium Level 4.2mmol/L (3.5-5.1) Chloride Level 105mmol/L (98-107) Carbon Dioxide Level 29mmol/L (21-32) Anion Gap 7 (6-14) Blood Urea Nitrogen 11mg/dL (8-26) Creatinine 1.0mg/dL (0.7-1.3) Estimated GFR (Cockcroft-Gault) 75.5 Glucose Level 149mg/dL (70-99) Calcium Level 8.9mg/dL (8.5-10.1) Triglycerides Level 237mg/dL (0-150) Cholesterol Level 209mg/dL (0-200) LDL Cholesterol, Calculated 131mg/dL (0-100) VLDL Cholesterol, Calculated 47mg/dL (0-40) Non-HDL Cholesterol Calculated 178mg/dL (0-129) HDL Cholesterol 31mg/dL (40-60) Cholesterol/HDL Ratio 6.7 Thyroid Stimulating Hormone (TSH) 2.100uIU/mL (0.358-3.74) Review of Systems Review of Systems (+) pain to catherization site Denies chest pain, sob, palpitations, abdominal pain, n/v/d, dizziness/ lightheadedness, headaches, or fever/chills. Assessment and Plan Assessmemt and Plan Problems Medical Problems: (1) NSTEMI (non-ST elevated myocardial infarction) Status: Acute 1. NSTEMI - s/p C revealing diffuse mild disease and 95% RCA lesion prompting PCI/CAT 2. CAD 3. Asymptomatic sinus bradycardia: slowest at 40. 4. HLP 5. HTN 6. Fatty liver disease vs. SOUTH 7. probable diabetes mellitus 8. Obesity 9. alcohol use disorder Assessment: 1.) continue telemetry monitoring 2.) anti-hypertensives and chronotropic agents management, per cardiology 3.) appreciate subspecialty input 4.) continue lifestyle modification counseling 5.) CIWA protocol, monitor for withdrawal. ativan prn 6.) AM labs, f/u on tsh and [id number] 7.) probable discharge today or tomorrow when okay with cardiology. f/u with pcp and/or sack filler in 1-2 weeks. Problems: Comment Review of Relevant I have reviewed the following items yareli (where applicable) has been applied. Labs Laboratory Tests Test 07/01/16 17:57 07/01/16 20:51 07/02/16 03:00 07/02/16 09:10 Glucose (Fingerstick) 118mg/dL (70-99) 162mg/dL (70-99) 137mg/dL (70-99) White Blood Count 7.1x10^3/uL (4.0-11.0) Red Blood Count 4.56x10^6/uL (4.30-5.70) Hemoglobin 13.7g/dL (13.0-17.5) Hematocrit 39.4% (39.0-53.0) Mean Corpuscular Volume 86fL (79-100) Mean Corpuscular Hemoglobin 30pg (25-35) Mean Corpuscular Hemoglobin Concent 35g/dL (31-37) Red Cell Distribution Width 13.7% (11.5-14.5) Platelet Count 166x10^3/uL (140-400) Neutrophils (%) (Auto) 52% (31-73) Lymphocytes (%) (Auto) 36% (24-48) Monocytes (%) (Auto) 9% (0-9) Eosinophils (%) (Auto) 3% (0-3) Basophils (%) (Auto) 1% (0-3) Neutrophils # (Auto) 3.7x10^3uL (1.8-7.7) Lymphocytes # (Auto) 2.5x10^3/uL (1.0-4.8) Monocytes # (Auto) 0.6x10^3/uL (0.0-1.1) Eosinophils # (Auto) 0.2x10^3/uL (0.0-0.7) Basophils # (Auto) 0.1x10^3/uL (0.0-0.2) Prothrombin Time 12.4SEC (11.7-14.0) Prothromb Time International Ratio 1.0 (0.8-1.1) Sodium Level 142mmol/L (136-145) Potassium Level 3.9mmol/L (3.5-5.1) Chloride Level 105mmol/L (98-107) Carbon Dioxide Level 30mmol/L (21-32) Anion Gap 7 (6-14) Blood Urea Nitrogen 13mg/dL (8-26) Creatinine 1.0mg/dL (0.7-1.3) Estimated GFR (Cockcroft-Gault) 75.5 BUN/Creatinine Ratio 13 (6-20) Glucose Level 147mg/dL (70-99) Calcium Level 8.4mg/dL (8.5-10.1) Total Bilirubin 0.3mg/dL (0.2-1.0) Aspartate Amino Transf (AST/SGOT) 25U/L (15-37) Alanine Aminotransferase (ALT/SGPT) 40U/L (16-63) Alkaline Phosphatase 57U/L (46-116) Total Protein 6.5g/dL (6.4-8.2) Albumin 3.3g/dL (3.4-5.0) Albumin/Globulin Ratio 1.0 (1.0-1.7) Test 07/02/16 10:56 07/02/16 20:44 07/03/16 06:10 07/03/16 07:52 Glucose (Fingerstick) 124mg/dL (70-99) 165mg/dL (70-99) 148mg/dL (70-99) White Blood Count 8.8x10^3/uL (4.0-11.0) Red Blood Count 4.91x10^6/uL (4.30-5.70) Hemoglobin 14.4g/dL (13.0-17.5) Hematocrit 42.8% (39.0-53.0) Mean Corpuscular Volume 87fL (79-100) Mean Corpuscular Hemoglobin 29pg (25-35) Mean Corpuscular Hemoglobin Concent 34g/dL (31-37) Red Cell Distribution Width 14.1% (11.5-14.5) Platelet Count 171x10^3/uL (140-400) Neutrophils (%) (Auto) 74% (31-73) Lymphocytes (%) (Auto) 17% (24-48) Monocytes (%) (Auto) 8% (0-9) Eosinophils (%) (Auto) 1% (0-3) Basophils (%) (Auto) 1% (0-3) Neutrophils # (Auto) 6.5x10^3uL (1.8-7.7) Lymphocytes # (Auto) 1.5x10^3/uL (1.0-4.8) Monocytes # (Auto) 0.7x10^3/uL (0.0-1.1) Eosinophils # (Auto) 0.1x10^3/uL (0.0-0.7) Basophils # (Auto) 0.1x10^3/uL (0.0-0.2) Sodium Level 141mmol/L (136-145) Potassium Level 4.2mmol/L (3.5-5.1) Chloride Level 105mmol/L (98-107) Carbon Dioxide Level 29mmol/L (21-32) Anion Gap 7 (6-14) Blood Urea Nitrogen 11mg/dL (8-26) Creatinine 1.0mg/dL (0.7-1.3) Estimated GFR (Cockcroft-Gault) 75.5 Glucose Level 149mg/dL (70-99) Calcium Level 8.9mg/dL (8.5-10.1) Triglycerides Level 237mg/dL (0-150) Cholesterol Level 209mg/dL (0-200) LDL Cholesterol, Calculated 131mg/dL (0-100) VLDL Cholesterol, Calculated 47mg/dL (0-40) Non-HDL Cholesterol Calculated 178mg/dL (0-129) HDL Cholesterol 31mg/dL (40-60) Cholesterol/HDL Ratio 6.7 Thyroid Stimulating Hormone (TSH) 2.100uIU/mL (0.358-3.74) Laboratory Tests Test 07/02/16 20:44 07/03/16 06:10 07/03/16 07:52 Glucose (Fingerstick) 165mg/dL (70-99) 148mg/dL (70-99) White Blood Count 8.8x10^3/uL (4.0-11.0) Red Blood Count 4.91x10^6/uL (4.30-5.70) Hemoglobin 14.4g/dL (13.0-17.5) Hematocrit 42.8% (39.0-53.0) Mean Corpuscular Volume 87fL (79-100) Mean Corpuscular Hemoglobin 29pg (25-35) Mean Corpuscular Hemoglobin Concent 34g/dL (31-37) Red Cell Distribution Width 14.1% (11.5-14.5) Platelet Count 171x10^3/uL (140-400) Neutrophils (%) (Auto) 74% (31-73) Lymphocytes (%) (Auto) 17% (24-48) Monocytes (%) (Auto) 8% (0-9) Eosinophils (%) (Auto) 1% (0-3) Basophils (%) (Auto) 1% (0-3) Neutrophils # (Auto) 6.5x10^3uL (1.8-7.7) Lymphocytes # (Auto) 1.5x10^3/uL (1.0-4.8) Monocytes # (Auto) 0.7x10^3/uL (0.0-1.1) Eosinophils # (Auto) 0.1x10^3/uL (0.0-0.7) Basophils # (Auto) 0.1x10^3/uL (0.0-0.2) Sodium Level 141mmol/L (136-145) Potassium Level 4.2mmol/L (3.5-5.1) Chloride Level 105mmol/L (98-107) Carbon Dioxide Level 29mmol/L (21-32) Anion Gap 7 (6-14) Blood Urea Nitrogen 11mg/dL (8-26) Creatinine 1.0mg/dL (0.7-1.3) Estimated GFR (Cockcroft-Gault) 75.5 Glucose Level 149mg/dL (70-99) Calcium Level 8.9mg/dL (8.5-10.1) Triglycerides Level 237mg/dL (0-150) Cholesterol Level 209mg/dL (0-200) LDL Cholesterol, Calculated 131mg/dL (0-100) VLDL Cholesterol, Calculated 47mg/dL (0-40) Non-HDL Cholesterol Calculated 178mg/dL (0-129) HDL Cholesterol 31mg/dL (40-60) Cholesterol/HDL Ratio 6.7 Thyroid Stimulating Hormone (TSH) 2.100uIU/mL (0.358-3.74) Medications Current Medications Ondansetron HCl (Zofran) 4 mg PRN Q6HRS PRN IV NAUSEA/VOMITING 1ST CHOICE; Start 07/01/16 at 15:15 Prochlorperazine Edisylate (Compazine) 10 mg PRN Q6HRS PRN IV NAUSEA/VOMITING 2ND CHOICE; Start 07/01/16 at 15:15 Prochlorperazine (Compazine) 25 mg PRN Q12HR PRN OR NAUSEA/VOMITING; Start at 15:15 Al Hydroxide/Mg Hydroxide (Mylanta Plus Xs) 30 ml PRN Q3HRS PRN PO HEARTBURN / GAS; Start 07/01/16 at 15:15 Calcium Carbonate/ Glycine (Tums) 500 mg PRN Q3HRS PRN PO UPSET STOMACH; Start 07/01/16 at 15:15 Zolpidem Tartrate (Ambien) 5 mg PRN QHS PRN PO INSOMNIA, MAY REPEAT IN 1HR; Start 07/01/16 at 15:15 Oxycodone HCl (Roxicodone) 5 mg PRN Q3HRS PRN PO BREAKTHROUGH PAIN; Start 07/01 at 15:15 Morphine Sulfate 2 mg PRN Q2HR PRN IV PAIN; Start 07/01/16 at 15:15 Ketorolac Tromethamine (Toradol) 15 mg PRN Q6HRS PRN IV PAIN; Start 07/01/16 at 15:15; Stop 07/06/16 at 15:14 Acetaminophen (Tylenol) 650 mg PRN Q6HRS PRN PO MILD PAIN / TEMP Last administered on 07/02/16 23:26; Start 07/01/16 at 15:15 Ibuprofen (Motrin) 400 mg PRN Q6HRS PRN PO MILD PAIN; Start 07/01/16 at 15:15 Docusate Sodium (Colace) 100 mg BID PO Last administered on 07/02/16 22:07; Start 07/01/16 at 21:00 Magnesium Hydroxide (Milk Of Magnesia) 2,400 mg PRN Q12HR PRN PO CONSTIPATION; Start 07/01/16 at 15:15 Bisacodyl (Dulcolax Supp) 10 mg PRN DAILY PRN OR CONSTIPATION; Start 07/01/16 at 15:15 Enoxaparin Sodium (Lovenox 40mg Syringe) 40 mg QHS SQ ; Start 07/01/16 at 21:00 ; Stop 07/01/16 at 21:00; Status DC Enoxaparin Sodium 100 mg 100 mg 1X ONCE SQ Last administered on 07/01/16 18: 00; Start 07/01/16 at 16:00; Stop 07/01/16 at 16:01; Status DC Sodium Chloride (Iv Sodium Chloride 0.9% 1000ml Bag) 1,000 ml @ 75 mls/hr [id number] IV Last administered on 07/02/16 09:02; Start 07/02/16 at 08:00 Thiamine HCl (Vitamin B-1) 100 mg DAILY PO Last administered on 07/03/16 09:31 ; Start 07/01/16 at 18:00 Folic Acid (Folic Acid) 1 mg DAILY PO Last administered on 07/03/16 09:32; Start 07/01/16 at 18:00 Multivitamins (Thera M Plus) 1 tab DAILY PO Last administered on 07/03/16 09: 31; Start 07/01/16 at 18:00 Chlordiazepoxide (Librium) 25 mg PRN Q6HRS PRN PO ANXIETY / AGITATION; Start at 16:30 Nitroglycerin (Nitro-Bid Oint) 1 inch Q6HRS TP Last administered on 07/02/16 18:25; Start 07/01/16 at 21:00 Aspirin (Jonathan Aspirin) 325 mg [id number] PO Last administered on 07/02/16 09: 01; Start 07/01/16 at 20:30; Stop 07/02/16 at 11:01; Status DC Lisinopril (Prinivil) 5 mg DAILY PO Last administered on 07/03/16 09:32; Start 07/01/16 at 20:30; Stop 07/03/16 at 11:52; Status DC Lidocaine HCl 20 ml 20 ml STK-MED ONCE .ROUTE ; Start 07/02/16 at 09:12; Stop at 09:13; Status DC Heparin Sodium/ Sodium Chloride 1,000 ml @ As Directed STK-MED ONCE .ROUTE ; Start 07/02/16 at 09:12; Stop 07/02/16 at 09:13; Status DC Iohexol (Omnipaque 300 Mg/ml) 100 ml STK-MED ONCE .ROUTE ; Start 07/02/16 at 09: 12; Stop 07/02/16 at 09:13; Status DC Midazolam HCl (Versed) 2 mg STK-MED ONCE .ROUTE ; Start 07/02/16 at 09:31; Stop 07/02/16 at 09:32; Status DC Fentanyl Citrate (Fentanyl 2ml Vial) 100 mcg STK-MED ONCE .ROUTE ; Start at 09:31; Stop 07/02/16 at 09:32; Status DC Nitroglycerin (Nitro-Bid Oint) 1 inch STK-MED ONCE .ROUTE ; Start 07/02/16 at 09 :45; Stop 07/02/16 at 09:46; Status DC Heparin Sodium/ Sodium Chloride 1,000 unit 1X ONCE IART Last administered on 10:38; Start 07/02/16 at 10:00; Stop 07/02/16 at 10:03; Status DC Midazolam HCl (Versed) 2 mg 1X ONCE IV Last administered on 07/02/16 10:36; Start 07/02/16 at 10:00; Stop 07/02/16 at 10:03; Status DC Fentanyl Citrate (Fentanyl 2ml Vial) 100 mcg 1X ONCE IV Last administered on 10:38; Start 07/02/16 at 10:00; Stop 07/02/16 at 10:03; Status DC Iohexol (Omnipaque 300 Mg/ml) 100 ml 1X ONCE IART Last administered on 10:39; Start 07/02/16 at 10:00; Stop 07/02/16 at 10:03; Status DC Lidocaine HCl 20 ml 1X ONCE IJ Last administered on 07/02/16 10:38; Start at 10:00; Stop 07/02/16 at 10:03; Status DC Nitroglycerin (Nitro-Bid Oint) 2 inch 1X ONCE TP Last administered on 09:46; Start 07/02/16 at 10:00; Stop 07/02/16 at 10:03; Status DC Bivalirudin (Angiomax) 250 mg STK-MED ONCE IV ; Start 07/02/16 at 10:06; Stop at 10:07; Status DC Atropine Sulfate 0.5 mg STK-MED ONCE .ROUTE ; Start 07/02/16 at 10:11; Stop at 10:12; Status DC Bivalirudin (Angiomax) 250 mg 1X ONCE IV Last administered on 07/02/16 10:40 ; Start 07/02/16 at 10:15; Stop 07/02/16 at 10:19; Status DC Ticagrelor (Brilinta) 90 mg STK-MED ONCE .ROUTE ; Start 07/02/16 at 10:31; Stop 07/02/16 at 10:32; Status DC Ticagrelor (Brilinta) 180 mg 1X ONCE PO Last administered on 07/02/16 10:41; Start 07/02/16 at 10:45; Stop 07/02/16 at 10:46; Status DC Aspirin (Children'S Aspirin) 81 mg 1X ONCE PO Last administered on 07/02/16 10:41; Start 07/02/16 at 10:45; Stop 07/02/16 at 10:46; Status DC Sodium Chloride 3 ml 3 ml QSHIFT PRN IV AFTER MEDS AND BLOOD DRAWS; Start 07/02 at 11:00 Sodium Chloride (Iv Sodium Chloride 0.9% 1000ml Bag) 1,000 ml @ 75 mls/hr [id number] IV ; Start 07/02/16 at 10:55; Stop 07/02/16 at 18:54; Status DC Aspirin (Ecotrin) 81 mg DAILYWBKFT PO Last administered on 07/03/16 09:31; Start 07/02/16 at 11:00 Ticagrelor (Brilinta) 90 mg BID PO Last administered on 07/03/16 09:31; Start 07/03/16 at 09:00 Metoprolol Tartrate (Lopressor) 25 mg BID PO Last administered on 07/03/16 09: 32; Start 07/02/16 at 21:00; Stop 07/03/16 at 11:52; Status DC Lisinopril (Prinivil) 10 mg DAILY PO Last administered on 07/02/16 11:34; Start 07/02/16 at 11:00; Stop 07/03/16 at 11:52; Status DC Atorvastatin Calcium (Lipitor) 20 mg QHS PO Last administered on 07/02/16t 22: 07; Start 07/02/16 at 21:00; Stop 07/03/16 at 11:52; Status DC Acetaminophen (Tylenol) 650 mg PRN Q6HRS PRN PO MILD PAIN / TEMP; Start at 11:00 Fentanyl Citrate (Fentanyl 2ml Vial) 50 mcg PRN Q1HR PRN IV MODERATE OR SEVERE PAIN; Start 07/02/16 at 11:00 Nitroglycerin 0.4 mg 0.4 mg PRN Q5MIN PRN SL CHEST PAIN; Start 07/02/16 at 11: 00 Amiodarone HCl/ Dextrose (Cordarone) 103 ml @ 10 mls/min 1X PRN PRN IV FOR VENTRICULAR TACHYCARDIA; Start 07/02/16 at 11:00 Lidocaine HCl (Lidocaine HCl 2% Abboject) 100 mg 1X PRN PRN IV FOR VENTRICULAR TACHYCARDIA; Start 07/02/16 at 11:00 Atropine Sulfate 0.5 mg PRN 1X PRN IV BRADYCARDIA; Start 07/02/16 at 11:00 Oxycodone/ Acetaminophen (Percocet 5/325) 2 tab PRN Q4HRS PRN PO MODERATE PAIN , SEVERE PAIN; Start 07/02/16 at 11:00 Atorvastatin Calcium (Lipitor) 40 mg QHS PO ; Start 07/03/16 at 21:00 Lisinopril (Prinivil) 20 mg DAILY PO ; Start 07/04/16 at 09:00 Hydralazine HCl (Apresoline) 25 mg BID PO ; Start 07/03/16 at 21:00 Active Scripts Active Reported Atorvastatin Calcium 40 Mg Tablet 1 Tab PO QHS Naproxen 500 Mg Tablet 500 Mg PO Vitals/I & O Vital Sign - Last 24 Hours 07/02/16 07/02/16 07/02/16 07/02/16 14:00 15:00 18:25 19:15 Pulse 60 66 66 Resp 16 16 B/P 169/79 143/83 143/83 O2 Delivery Room Air Room Air Room Air 07/02/16 07/02/16 07/02/16 07/03/16 19:17 21:00 23:01 03:51 Temp 98.5 97.6 97.9 98.5 97.6 97.9 Pulse 69 54 57 59 Resp 16 20 20 B/P 174/81 174/81 158/79 156/74 Pulse Ox 97 98 98 O2 Delivery Room Air Room Air Room Air 07/03/16 07/03/16 07/03/16 07/03/16 07:55 08:10 09:00 09:32 Temp 98.3 98.3 Pulse 67 67 67 Resp 19 B/P 173/92 173/92 173/92 Pulse Ox 98 O2 Delivery Room Air Room Air 07/03/16 07/03/16 09:32 11:18 Temp 98.3 98.3 Pulse 67 56 Resp 18 B/P 173/92 156/79 Pulse Ox 98 O2 Delivery Room Air Intake and Output 07/02/16 07/02/16 07/03/16 15:00 23:00 07:00 Intake Total 120 ml 950 ml 800 ml Output Total 950 ml 650 ml 1250 ml Balance -830 ml 300 ml -450 ml PHYLICIA RITCHIE III DO Jul 03, 2016 13:55
[2016-07-03] MEDS ORDERED: ATORVASTATIN CALCIUM 40 MG TABLET. PO SCH (21:00)
[2016-07-03] MEDS ORDERED: hydrALAZINE 25 MG TABLET PO SCH (21:00)
[2016-07-04] MEDS ORDERED: LISINOPRIL 20 MG TABLET PO SCH (09:00)
== END 2016-07-03 14:44 | disposition home or self-care (01) | DRG 247 ==
LOC: 2 SOUTH 13:15
PROVIDERS: ADMIT Internal Medicine; ATTEND Internal Medicine
PROC: 4A023N7 Measurement of Cardiac Sampling and Pressure, Left Heart, Percutaneous Approach (ICD-10-PCS; principal; 2016-07-02)
PROC: 027034Z Dilation of Coronary Artery, One Artery with Drug-eluting Intraluminal Device, Percutaneous Approach (ICD-10-PCS; 2016-07-02)
PROC: B2111ZZ Fluoroscopy of Multiple Coronary Arteries using Low Osmolar Contrast (ICD-10-PCS; 2016-07-02)
PROC: B2151ZZ Fluoroscopy of Left Heart using Low Osmolar Contrast (ICD-10-PCS; 2016-07-02)
DX: I21.4 Non-ST elevation (NSTEMI) myocardial infarction (principal); I25.10 Atherosclerotic heart disease of native coronary artery without angina pectoris; K76.0 Fatty (change of) liver, not elsewhere classified; E11.9 Type 2 diabetes mellitus without complications; E66.9 Obesity, unspecified; E78.2 Mixed hyperlipidemia; M19.90 Unspecified osteoarthritis, unspecified site; F10.20 Alcohol dependence, uncomplicated; I10 Essential (primary) hypertension; I25.2 Old myocardial infarction; Z82.49 Family history of ischemic heart disease and other diseases of the circulatory system; R00.1 Bradycardia, unspecified
CPT/HCPCS: 36415; 80048; 80053; 80061; 82947; 83036; 84443; 85027; 85610; 92928; 93005; 93458; C1725; C1769; C1771; C1874; C1892; G0269; J0583; J1650; J2250; J3010; J7030; Q9967